=== PATIENT | female | born 1955 | race Caucasian/White ===

== ENCOUNTER 2025-06-01 20:57 | Inpatient (IN) | payer BC ==
[~2025-06-01] VITALS: Ht 157.5 cm; Wt 102.1 kg
[2025-06-01] MEDS: ALBUTEROL (0.083%) 2.5MG/3ML NEB HHN ONE (21:25)
[2025-06-01] MEDS: IPRATROPIUM BROMIDE (0.02%) 0.5MG/2.5ML NEB HHN ONE (21:26)
[2025-06-01 21:28] VITALS: PULSE 69; RESP 22; O2SAT 96
[2025-06-01 21:39] LABS: BASOPHILS % 0.3 % (0.0-2.0); EOSINOPHILS % 2.3 % (0.0-5.0); HEMATOCRIT. 33.4 % (36.0-48.0); HEMOGLOBIN. 10.8 g/dL (12.0-16.0); LYMPHOCYTES % 32.1 % (20.0-50.0); MEAN PLATELET VOLUME 7.7 fl (7.4-10.4); MONOCYTES % 11.4 % (2.0-8.0); NEUTROPHILS % 53.9 % (40.0-76.0); PLATELET 205 x1000/uL (130-400); RED BLOOD CELL COUNT 3.37 mill/uL (4.2-5.4); RED CELL DISTRIBUTION WIDTH 16.6 % (11.6-14.6)
[2025-06-01 21:56] LABS: CREATININE 1.8 mg/dL (0.6-1.0)
[2025-06-01 21:57] LABS: UREA NITROGEN BLOOD 23 mg/dL (9-23)
[2025-06-01 21:58] LABS: ASPARTATE AMINOTRANSFERASE 27 IU/L (<34)
[2025-06-01 21:59] LABS: BILIRUBIN DIRECT 0.4 mg/dL (<=3.0); BILIRUBIN TOTAL 1.0 mg/dL (0.1-1.0); PROTEIN TOTAL 6.5 g/dL (6.0-8.3)
[2025-06-01 22:29] LABS: TROPONIN I HIGH SENSITIVITY 222 ng/L (3.0-34)
[2025-06-02] VITALS (18 sets, daily range): BP systolic 96–137; BP diastolic 65–87; PULSE 53–73; RESP 18–24; TEMP 36.5292–36.7; O2SAT 94–100
[2025-06-02 00:48] LABS: TROPONIN I HIGH SENSITIVITY 227 ng/L (3.0-34)
[2025-06-02 00:48] LABS: BG BASE EXCESS 6.4 mmol/L (-2.0-3.0); BG CARBOXYHEMOGLOBIN 0.8 % (0.5-1.5); BG DEOXYHEMOGLOBIN 13.1 % (0.0-5.0); BG FLOW(L/min) 4.00 L/min; BG FRACTION INSPIRED OXYGEN 36; BG HCO3 ACT 34.2 mmol/L (21.0-28.0); BG METHEMOGLOBIN 0.1 % (0.5-1.5); BG OXYGEN SATURATION 86.8 % (94.0-98.0); BG OXYHEMOGLOBIN 86.0 % (94.0-98.0); BG PCO2 67.2 mmHg (32.0-45.0); BG PH 7.324 (7.350-7.450); BG PO2 57.9 mmHg (83.0-108.0); BG SAMPLE SITE RIGHT RADIAL; BG TOTAL HEMOGLOBIN 11.3 g/dL (12.0-16.0); BG TOTAL RESPIRATORY RATE 16 b/min; BG VENT MODE NASAL CANNULA
[2025-06-02] MEDS: IOHEXOL-350 100 ML BOTTLE ONE (01:08)
[2025-06-02] MEDS ORDERED: HYDROCODONE/ACETAMINOPHEN 5/325MG TABLET PO PRN (03:30)
[2025-06-02] MEDS: ENOXAPARIN 40MG/0.4ML SYR SUBCUT SCH (08:34)
[2025-06-02] MEDS ORDERED: GUAIFENESIN 200MG/10ML SUGAR FREE UDC PO PRN (08:45)
[2025-06-02] MEDS ORDERED: IPRATROPIUM/ALBUTEROL 0.5-3(2.5)MG/3ML NEB HHN PRN (08:45)
[2025-06-02] MEDS ORDERED: NALOXONE HCL 0.4MG/ML VIAL IV PRN (09:00)
[2025-06-02 09:43] LABS: BG BASE EXCESS 7.1 mmol/L (-2.0-3.0); BG CARBOXYHEMOGLOBIN 0.9 % (0.5-1.5); BG DEOXYHEMOGLOBIN 5.9 % (0.0-5.0); BG FLOW(L/min) 7.50 L/min; BG FRACTION INSPIRED OXYGEN 50; BG HCO3 ACT 34.6 mmol/L (21.0-28.0); BG METHEMOGLOBIN 0.2 % (0.5-1.5); BG OXYGEN SATURATION 94.0 % (94.0-98.0); BG OXYHEMOGLOBIN 93.0 % (94.0-98.0); BG PCO2 65.1 mmHg (32.0-45.0); BG PH 7.343 (7.350-7.450); BG PO2 74.7 mmHg (83.0-108.0); BG SAMPLE SITE RIGHT RADIAL; BG TOTAL HEMOGLOBIN 11.4 g/dL (12.0-16.0); BG VENT MODE NASAL CANNULA
[2025-06-02] MEDS: FUROSEMIDE 40MG/4ML VIAL IVP SCH (10:44)
[2025-06-02] MEDS: CEFTRIAXONE 1GM/50ML 50 ML IV SCH (10:44)
[2025-06-02 11:05] LABS: CLARITY URINE CLEAR (CLEAR); COLOR URINE YELLOW (YELLOW); GLUCOSE URINE NEGATIVE (NEGATIVE); KETONES URINE NEGATIVE (NEGATIVE); LEUKOCYTE ESTERASE URINE NEGATIVE (NEGATIVE); NITRITE URINE NEGATIVE (NEGATIVE); OCCULT BLOOD URINE NEGATIVE (NEGATIVE); PH URINE 5.5 (4.5-8.0); PROTEIN URINE 2+ (NEGATIVE); SPECIFIC GRAVITY URINE 1.058 (1.005-1.030); UROBILINOGEN URINE 1.0 E.U./dL (0.2-1.0)
[2025-06-02 11:27] LABS: *AMPHETAMINES SCREEN URINE NEGATIVE (NEGATIVE); *BARBITURATES SCREEN URINE NEGATIVE (NEGATIVE); *BENZODIAZEPINES SCREEN URINE NEGATIVE (NEGATIVE); *COCAINE SCREEN URINE NEGATIVE (NEGATIVE); CANNABINOID URINE SCREEN NEGATIVE (NEGATIVE); ECSTASY MDMA SCREEN URINE NEGATIVE (NEGATIVE); METHADONE URINE SCREEN NEGATIVE (NEGATIVE); OPIATES URINE SCREEN NEGATIVE (NEGATIVE); PHENCYCLIDINE URINE SCREEN NEGATIVE (NEGATIVE)
[2025-06-02 11:53] LABS: BACTERIA URINE 4+; SQUAMOUS EPITHELIAL CELL URINE 1+ /lpf (RARE/1+); YEAST URINE NONE SEEN
[2025-06-02] MEDS: DOXYCYCLINE 100MG/100ML 100 ML IV SCH (12:14)
[2025-06-02 12:17] LABS: BASOPHILS % 0.7 % (0.0-2.0); EOSINOPHILS % 2.8 % (0.0-5.0); HEMATOCRIT. 30.8 % (36.0-48.0); HEMOGLOBIN. 10.0 g/dL (12.0-16.0); LYMPHOCYTES % 37.3 % (20.0-50.0); MEAN PLATELET VOLUME 7.6 fl (7.4-10.4); MONOCYTES % 10.3 % (2.0-8.0); NEUTROPHILS % 48.9 % (40.0-76.0); PLATELET 191 x1000/uL (130-400); RED BLOOD CELL COUNT 3.11 mill/uL (4.2-5.4); RED CELL DISTRIBUTION WIDTH 16.7 % (11.6-14.6)
[2025-06-02] MEDS: IPRATROPIUM/ALBUTEROL 0.5-3(2.5)MG/3ML NEB HHN SCH (12:35)
[2025-06-02 12:46] LABS: CREATININE 1.4 mg/dL (0.6-1.0); UREA NITROGEN BLOOD 17 mg/dL (9-23)
[2025-06-02 12:48] LABS: ASPARTATE AMINOTRANSFERASE 23 IU/L (<34); BILIRUBIN TOTAL 1.1 mg/dL (0.1-1.0)
[2025-06-02 12:49] LABS: PROTEIN TOTAL 5.9 g/dL (6.0-8.3)
[2025-06-02] MEDS ORDERED: APIX5TAB PO (12:59)
[2025-06-02] MEDS ORDERED: SPIR50TA5 PO (12:59)
[2025-06-02] MEDS ORDERED: LEVO112T7 PO (12:59)
[2025-06-02] MEDS ORDERED: SOTA80TA PO (12:59)
[2025-06-02] MEDS ORDERED: ATOR10TA69 PO (12:59)
[2025-06-02] MEDS ORDERED: IPRA42SP BOTHNSTRLS (12:59)
[2025-06-02] MEDS ORDERED: VALS1TAB80 MT (12:59)
[2025-06-02] MEDS ORDERED: VALSARTAN MT SCH (18:30)
[2025-06-02] MEDS ORDERED: HYDROCHLOROTHIAZIDE MT SCH (18:30)
[2025-06-02] MEDS ORDERED: [UNRECOGNIZED DRUG - OTHER] MT SCH (18:30)
[2025-06-02] MEDS: SOTALOL HCL 80MG TABLET PO SCH (20:28)
[2025-06-02] MEDS: SPIRONOLACTONE 50MG TABLET PO SCH (20:28)
[2025-06-02] MEDS: APIXABAN 5 MG TABLET PO SCH (20:28)
[2025-06-02] MEDS ORDERED: ATORVASTATIN CALCIUM 10MG TABLET PO SCH (21:00)
[2025-06-02 22:34] LABS: TROPONIN I HIGH SENSITIVITY 205 ng/L (3.0-34)
[2025-06-03] VITALS (16 sets, daily range): BP systolic 99–133; BP diastolic 55–99; PULSE 61–78; RESP 13–31; TEMP 36.3–36.9; O2SAT 91–100
[2025-06-03] MEDS: LEVOTHYROXINE SODIUM 112MCG TABLET PO SCH (06:50)
[2025-06-03 06:59] LABS: BASOPHILS % 0.2 % (0.0-2.0); EOSINOPHILS % 2.4 % (0.0-5.0); HEMATOCRIT. 31.6 % (36.0-48.0); HEMOGLOBIN. 10.2 g/dL (12.0-16.0); LYMPHOCYTES % 38.3 % (20.0-50.0); MEAN PLATELET VOLUME 7.8 fl (7.4-10.4); MONOCYTES % 11.0 % (2.0-8.0); NEUTROPHILS % 48.1 % (40.0-76.0); PLATELET 202 x1000/uL (130-400); RED BLOOD CELL COUNT 3.19 mill/uL (4.2-5.4); RED CELL DISTRIBUTION WIDTH 16.3 % (11.6-14.6)
[2025-06-03 07:06] LABS: CREATININE 1.3 mg/dL (0.6-1.0)
[2025-06-03 07:07] LABS: LDL CHOLESTEROL 60 mg/dL (5-100); TRIGLYCERIDE 72 mg/dL (0-150); UREA NITROGEN BLOOD 17 mg/dL (9-23)
[2025-06-03 07:08] LABS: ASPARTATE AMINOTRANSFERASE 19 IU/L (<34); PHOSPHORUS 4.2 mg/dL (2.5-4.9)
[2025-06-03 07:09] LABS: BILIRUBIN TOTAL 0.7 mg/dL (0.1-1.0); PROTEIN TOTAL 5.9 g/dL (6.0-8.3)
[2025-06-03 08:13] LABS: TROPONIN I HIGH SENSITIVITY 214 ng/L (3.0-34)
[2025-06-03] MEDS: ASPIRIN 81MG EC TABLET PO SCH (09:02)
[2025-06-03] MEDS: LOSARTAN 100 MG TABLET PO SCH (09:03)
[2025-06-03] MEDS: HYDROCHLOROTHIAZIDE 25MG TABLET PO SCH (09:04)
[2025-06-03] MEDS: ACETAMINOPHEN 325MG TABLET PO PRN (20:11)
[2025-06-04] VITALS (13 sets, daily range): BP systolic 102–131; BP diastolic 68–108; PULSE 86–131; RESP 15–24; TEMP 36.4–37; O2SAT 88–98
[2025-06-04 05:34] LABS: BASOPHILS % 0.3 % (0.0-2.0); EOSINOPHILS % 2.6 % (0.0-5.0); HEMATOCRIT. 31.5 % (36.0-48.0); HEMOGLOBIN. 10.1 g/dL (12.0-16.0); LYMPHOCYTES % 35.7 % (20.0-50.0); MEAN PLATELET VOLUME 7.9 fl (7.4-10.4); MONOCYTES % 12.3 % (2.0-8.0); NEUTROPHILS % 49.1 % (40.0-76.0); PLATELET 184 x1000/uL (130-400); RED BLOOD CELL COUNT 3.19 mill/uL (4.2-5.4); RED CELL DISTRIBUTION WIDTH 16.1 % (11.6-14.6)
[2025-06-04 06:06] LABS: CREATININE 1.2 mg/dL (0.6-1.0); UREA NITROGEN BLOOD 17.0 mg/dL (9-23)
[2025-06-04 06:45] LABS: TROPONIN I HIGH SENSITIVITY 201.0 ng/L (3.0-34)
[2025-06-04] MEDS: DILTIAZEM HCL 60MG TABLET PO SCH (08:30)
[2025-06-04] MEDS: DILTIAZEM HCL 30MG TABLET PO SCH (12:25)
[2025-06-04] MEDS: MONTELUKAST SODIUM 10MG TABLET PO SCH (17:20)
[2025-06-05] VITALS (17 sets, daily range): BP systolic 87–128; BP diastolic 64–94; PULSE 79–121; RESP 15–34; TEMP 36.4–37.4; O2SAT 90–99
[2025-06-05 08:48] LABS: CREATININE 1.2 mg/dL (0.6-1.0); UREA NITROGEN BLOOD 20 mg/dL (9-23)
[2025-06-05 08:50] LABS: ASPARTATE AMINOTRANSFERASE 21 IU/L (<34)
[2025-06-05 08:51] LABS: BILIRUBIN TOTAL 0.8 mg/dL (0.1-1.0); PROTEIN TOTAL 5.8 g/dL (6.0-8.3)
[2025-06-05 09:14] LABS: TROPONIN I HIGH SENSITIVITY 180 ng/L (3.0-34)
[2025-06-05] MEDS: MAGNESIUM 2 G PREMIX 50 ML IV NR (12:00)
[2025-06-05] MEDS ORDERED: MONT-46 PO (13:12)
[2025-06-05] MEDS ORDERED: FURO40TA5 MT (13:12)
[2025-06-05] MEDS ORDERED: ASPI-1406 PO (13:12)
[2025-06-05] MEDS ORDERED: DILT30TA3 PO (13:12)
[2025-06-05 13:17] LABS: BASOPHILS % 0.2 % (0.0-2.0); EOSINOPHILS % 2.3 % (0.0-5.0); HEMATOCRIT. 35.1 % (36.0-48.0); HEMOGLOBIN. 11.1 g/dL (12.0-16.0); LYMPHOCYTES % 37.7 % (20.0-50.0); MEAN PLATELET VOLUME 7.5 fl (7.4-10.4); MONOCYTES % 12.2 % (2.0-8.0); NEUTROPHILS % 47.6 % (40.0-76.0); RED BLOOD CELL COUNT 3.53 mill/uL (4.2-5.4); RED CELL DISTRIBUTION WIDTH 16.5 % (11.6-14.6)
[2025-06-05 13:25] LABS: PLATELET 179 x1000/uL (130-400)
[2025-06-05 14:39] LABS: BG BASE EXCESS 14.6 mmol/L (-2.0-3.0); BG CARBOXYHEMOGLOBIN 0.3 % (0.5-1.5); BG DEOXYHEMOGLOBIN 18.0 % (0.0-5.0); BG FRACTION INSPIRED OXYGEN 21; BG HCO3 ACT 42.0 mmol/L (21.0-28.0); BG METHEMOGLOBIN 0.3 % (0.5-1.5); BG OXYGEN SATURATION 81.9 % (94.0-98.0); BG OXYHEMOGLOBIN 81.4 % (94.0-98.0); BG PCO2 69.1 mmHg (32.0-45.0); BG PH 7.402 (7.350-7.450); BG PO2 42.6 mmHg (83.0-108.0); BG SAMPLE SITE RIGHT RADIAL; BG TOTAL HEMOGLOBIN 11.2 g/dL (12.0-16.0); BG VENT MODE ROOM AIR
[2025-06-05] MEDS: IPRATROPIUM/ALBUTEROL 0.5-3(2.5)MG/3ML NEB HHN PRN (16:55)
[2025-06-05] MEDS: DOXYCYCLINE HYCLATE 100MG CAPSULE PO SCH (20:42)
[2025-06-05 21:11] LABS: T4 FREE 0.9 ng/dL (0.89-1.76)
[2025-06-06] VITALS (13 sets, daily range): BP systolic 93–121; BP diastolic 70–99; PULSE 59–103; RESP 16–23; TEMP 36.4–36.9; O2SAT 90–99
[2025-06-06] MEDS: FUROSEMIDE 40MG/4 ML UDC PO SCH (11:44)
[2025-06-07] VITALS (7 sets, daily range): BP systolic 104–138; BP diastolic 73–92; PULSE 57–64; RESP 16–22; TEMP 36.5–36.8; O2SAT 97–99
[2025-06-07] MEDS ORDERED: SODIUM CHLORIDE 45ML SPRAY NS PRN (10:15)
[2025-06-08] VITALS: BP 150/90; PULSE 57; RESP 17; TEMP 36.7; O2SAT 97
[2025-06-08 04:00] VITALS: BP 81/53; PULSE 59; RESP 21; O2SAT 98
[2025-06-08 08:00] VITALS: PULSE 62; RESP 21; TEMP 37.1; O2SAT 89
[2025-06-08 12:00] VITALS: PULSE 77; RESP 18; TEMP 36.7; O2SAT 96
[2025-06-08 16:00] VITALS: BP 101/70; PULSE 64; RESP 24; TEMP 36.9; O2SAT 97
[2025-06-08 20:00] VITALS: BP 125/74; PULSE 65; RESP 21; TEMP 37.1; O2SAT 96
[2025-06-09] VITALS: BP 104/66; PULSE 61; RESP 27; TEMP 36.7; O2SAT 95
[2025-06-09 04:00] VITALS: BP 134/83; PULSE 62; RESP 18; TEMP 36.4; O2SAT 97
[2025-06-09 08:00] VITALS: BP 128/67; PULSE 58; RESP 16; TEMP 36.2; O2SAT 95
[2025-06-09 12:00] VITALS: BP 157/82; PULSE 74; RESP 16; TEMP 36.2; O2SAT 95
[2025-06-09 16:00] VITALS: BP_SYST 142; BP_SYST 143; BP_DIAS 82; BP_DIAS 85; PULSE 65; PULSE 68; RESP 16; TEMP 36.3; TEMP 36.4; O2SAT 96; O2SAT 97
[2025-06-09 17:12] LABS: BASOPHILS % 0.6 % (0.0-2.0); EOSINOPHILS % 3.3 % (0.0-5.0); HEMATOCRIT. 32.0 % (36.0-48.0); HEMOGLOBIN. 10.2 g/dL (12.0-16.0); LYMPHOCYTES % 42.5 % (20.0-50.0); MEAN PLATELET VOLUME 8.0 fl (7.4-10.4); MONOCYTES % 9.7 % (2.0-8.0); NEUTROPHILS % 43.9 % (40.0-76.0); PLATELET 184 x1000/uL (130-400); RED BLOOD CELL COUNT 3.24 mill/uL (4.2-5.4); RED CELL DISTRIBUTION WIDTH 16.2 % (11.6-14.6)
[2025-06-09 17:27] LABS: CREATININE 1.0 mg/dL (0.6-1.0); UREA NITROGEN BLOOD 12 mg/dL (9-23)
[2025-06-09 20:00] VITALS: BP 135/84; PULSE 66; RESP 21; TEMP 36.4; O2SAT 95
[2025-06-09 22:43] LABS: BG BASE EXCESS 19.7 mmol/L (-2.0-3.0); BG CARBOXYHEMOGLOBIN 0.2 % (0.5-1.5); BG DEOXYHEMOGLOBIN 7.8 % (0.0-5.0); BG FRACTION INSPIRED OXYGEN 28; BG HCO3 ACT 47.8 mmol/L (21.0-28.0); BG METHEMOGLOBIN 0.3 % (0.5-1.5); BG OXYGEN SATURATION 92.2 % (94.0-98.0); BG OXYHEMOGLOBIN 91.7 % (94.0-98.0); BG PCO2 77.5 mmHg (32.0-45.0); BG PEEP (cmH2O) 2.0 cmH2O; BG PH 7.408 (7.350-7.450); BG PO2 66.1 mmHg (83.0-108.0); BG SAMPLE SITE RIGHT RADIAL; BG TOTAL HEMOGLOBIN 10.8 g/dL (12.0-16.0); BG VENT MODE NASAL CANNULA
[2025-06-10] VITALS: BP 131/74; PULSE 61; RESP 20; TEMP 36.3; O2SAT 97
[2025-06-10] MEDS: MAGNESIUM 1 G PREMIX 100 ML IV NR (03:00)
[2025-06-10 04:00] VITALS: BP 137/80; PULSE 64; RESP 22; TEMP 36.5; O2SAT 96
[2025-06-10 08:00] VITALS: BP 144/66; PULSE 60; RESP 18; TEMP 36.3; O2SAT 95
[2025-06-10 12:00] VITALS: BP 126/76; PULSE 61; RESP 18; TEMP 36.2; O2SAT 96
[2025-06-10] MEDS: MAGNESIUM OXIDE 400MG TABLET PO SCH (12:52)
[2025-06-10 13:14] LABS: BASOPHILS % 0.9 % (0.0-2.0); EOSINOPHILS % 3.7 % (0.0-5.0); HEMATOCRIT. 31.8 % (36.0-48.0); HEMOGLOBIN. 10.2 g/dL (12.0-16.0); LYMPHOCYTES % 40.2 % (20.0-50.0); MONOCYTES % 9.4 % (2.0-8.0); NEUTROPHILS % 45.8 % (40.0-76.0); RED BLOOD CELL COUNT 3.22 mill/uL (4.2-5.4); RED CELL DISTRIBUTION WIDTH 15.8 % (11.6-14.6)
[2025-06-10 13:27] LABS: CREATININE 1.1 mg/dL (0.6-1.0); UREA NITROGEN BLOOD 12 mg/dL (9-23)
[2025-06-10 14:49] LABS: PLATELET 208 x1000/uL (130-400)
[2025-06-10 16:00] VITALS: BP 159/88; PULSE 62; RESP 16; TEMP 36.1; O2SAT 96
[2025-06-10 20:00] VITALS: BP 132/75; PULSE 61; RESP 21; TEMP 36.3; O2SAT 98
[2025-06-11] VITALS: BP 127/79; PULSE 61; RESP 22; TEMP 36.5; O2SAT 97
[2025-06-11 04:00] VITALS: BP 125/84; PULSE 62; RESP 21; TEMP 36.1; O2SAT 95
[2025-06-11 08:00] VITALS: BP 120/68; PULSE 64; RESP 16; TEMP 35.7; O2SAT 96
[2025-06-11] MEDS: CLONIDINE 0.1MG TABLET PO PRN (10:15)
[2025-06-11 12:00] VITALS: BP 133/71; PULSE 70; RESP 16; TEMP 36.1; O2SAT 97
[2025-06-11 16:00] VITALS: BP 121/72; PULSE 62; RESP 16; TEMP 36.1; O2SAT 95
[2025-06-11 20:00] VITALS: BP 141/86; PULSE 58; RESP 22; TEMP 36.1; O2SAT 97
[2025-06-11 23:17] LABS: BG BASE EXCESS 11.3 mmol/L (-2.0-3.0); BG CARBOXYHEMOGLOBIN 0.9 % (0.5-1.5); BG DEOXYHEMOGLOBIN 4.2 % (0.0-5.0); BG FLOW(L/min) 2.00 L/min; BG HCO3 ACT 38.8 mmol/L (21.0-28.0); BG METHEMOGLOBIN 0.1 % (0.5-1.5); BG OXYGEN SATURATION 95.8 % (94.0-98.0); BG OXYHEMOGLOBIN 94.8 % (94.0-98.0); BG PCO2 67.5 mmHg (32.0-45.0); BG PH 7.377 (7.350-7.450); BG PO2 82.0 mmHg (83.0-108.0); BG SAMPLE SITE LEFT RADIAL; BG TOTAL HEMOGLOBIN 11.1 g/dL (12.0-16.0); BG VENT MODE NASAL CANNULA
[2025-06-12] VITALS: BP 126/72; PULSE 63; RESP 22; TEMP 36.1; O2SAT 95
[2025-06-12 04:00] VITALS: BP 123/69; PULSE 58; RESP 22; TEMP 36.1; O2SAT 93
[2025-06-12 08:00] VITALS: BP 127/79; PULSE 62; RESP 18; TEMP 36.4; O2SAT 97
[2025-06-12 12:00] VITALS: BP 122/72; PULSE 64; RESP 18; TEMP 36.4; O2SAT 98
[2025-06-12 16:00] VITALS: BP 129/77; PULSE 60; RESP 18; TEMP 36.6; O2SAT 97
[2025-06-12 20:00] VITALS: BP 132/63; PULSE 63; RESP 18; RESP 19; TEMP 36.3; O2SAT 98
[2025-06-12 22:14] LABS: CREATININE 1.3 mg/dL (0.6-1.0); UREA NITROGEN BLOOD 12 mg/dL (9-23)
[2025-06-13] VITALS: BP 133/74; PULSE 82; RESP 19; TEMP 36.3; O2SAT 98
[2025-06-13 04:00] VITALS: BP_SYST 136; BP_DIAS 136; BP_DIAS 71; PULSE 89; RESP 17; RESP 20; TEMP 36.1; O2SAT 96
[2025-06-13 08:00] VITALS: BP 124/81; PULSE 91; RESP 17; TEMP 37.1; O2SAT 95
[2025-06-13 10:19] LABS: BASOPHILS % 0.5 % (0.0-2.0); EOSINOPHILS % 4.0 % (0.0-5.0); HEMATOCRIT. 35.7 % (36.0-48.0); HEMOGLOBIN. 11.4 g/dL (12.0-16.0); LYMPHOCYTES % 45.9 % (20.0-50.0); MEAN PLATELET VOLUME 7.9 fl (7.4-10.4); MONOCYTES % 10.0 % (2.0-8.0); NEUTROPHILS % 39.6 % (40.0-76.0); PLATELET 226 x1000/uL (130-400); RED BLOOD CELL COUNT 3.64 mill/uL (4.2-5.4); RED CELL DISTRIBUTION WIDTH 15.8 % (11.6-14.6)
[2025-06-13 10:58] LABS: CREATININE 1.1 mg/dL (0.6-1.0)
[2025-06-13 10:59] LABS: UREA NITROGEN BLOOD 11 mg/dL (9-23)
[2025-06-13 12:00] VITALS: BP 126/81; PULSE 78; RESP 17; TEMP 35.7; O2SAT 96
[2025-06-13 12:59] VITALS: BP 126/81; PULSE 78; RESP 17; TEMP 97.8
[2025-06-15] MEDS ORDERED: ASPI-1406 PO (14:24)
[2025-06-15] MEDS ORDERED: FURO40TA5 MT (14:24)
[2025-06-15] MEDS ORDERED: DILT30TA3 PO (14:24)
[2025-06-15] MEDS ORDERED: MONT-46 PO (14:24)
== END 2025-06-13 14:30 | disposition home or self-care (01) | DRG 291 ==
LOC: ER 20:57 → 5EST 06-02 00:52 → EDBEDREQ 06-02 01:08 → EDBEDREQTM 06-02 01:08 → EDBEDREQSVC 06-02 01:08 → ENRESERV 06-02 01:21 → 6WST 06-09 01:41
PROVIDERS: ADMIT Family Medicine Adult Medicine; ATTEND Family Medicine Adult Medicine
DX: I13.0 Hypertensive heart and chronic kidney disease with heart failure and stage 1 through stage 4 chronic kidney disease, or unspecified chronic kidney disease (principal); I50.33 Acute on chronic diastolic (congestive) heart failure; J96.21 Acute and chronic respiratory failure with hypoxia; J96.22 Acute and chronic respiratory failure with hypercapnia; E87.29 Other acidosis; N17.9 Acute kidney failure, unspecified; I48.92 Unspecified atrial flutter; E03.9 Hypothyroidism, unspecified; E83.51 Hypocalcemia; E83.42 Hypomagnesemia; N18.9 Chronic kidney disease, unspecified; R00.1 Bradycardia, unspecified; I36.1 Nonrheumatic tricuspid (valve) insufficiency; Z20.822 Contact with and (suspected) exposure to COVID-19; I27.20 Pulmonary hypertension, unspecified; I27.21 Secondary pulmonary arterial hypertension; Z79.01 Long term (current) use of anticoagulants; Z79.82 Long term (current) use of aspirin; Z82.49 Family history of ischemic heart disease and other diseases of the circulatory system; Z88.8 Allergy status to other drugs, medicaments and biological substances; Z99.81 Dependence on supplemental oxygen; Z86.73 Personal history of transient ischemic attack (TIA), and cerebral infarction without residual deficits
CPT/HCPCS: 36415; 36600; 70551; 71045; 71275; 80048; 80053; 80061; 80076; 80305; 81003; 82375; 82805; 83735; 83880; 84100; 84145; 84439; 84443; 84481; 84484; 85025; 87426; 93005; 93306; 93880; 93970; 94070; 94618; 94640; 94664; 94760; 97162; 99285; A4606; J0696; J1650; J1938; J1940; J3475; J3490; Q9967